=== PATIENT | male | born 1995 | race Caucasian/White ===

== ENCOUNTER 2019-04-29 13:33 | Emergency (ER) | payer OTHER ==
[~2019-04-29] VITALS: Ht 175.3 cm; Wt 53.5 kg
[~2019-04-29 13:33] MED LIST: AMOX1TAB12 PO; FIORICET 50-321 EACH PO; INTESTINEX1 CAP PO; MAXALT5 MG
[2019-04-29] MEDS ORDERED: DOLOGEN CAPLET1 EACH PO (17:33)
[2019-04-29] MEDS ORDERED: ZITHROMAX500 MG PO (17:33)
[2019-04-29] MEDS ORDERED: TUSNEL LIQUID178 ML PO (17:33)
== END 2019-04-29 17:36 | disposition home or self-care (01) ==
LOC: ER 13:33
DX: B34.9 Viral infection, unspecified (principal); J06.9 Acute upper respiratory infection, unspecified

== ENCOUNTER 2019-09-04 20:28 | Emergency (ER) | payer OTHER ==
[~2019-09-04] VITALS: Ht 175.3 cm; Wt 54.4 kg
[~2019-09-04 20:28] MED LIST changes: +DOLOGEN CAPLET1 EACH PO; +TUSNEL LIQUID178 ML PO; +ZITHROMAX500 MG PO
== END 2019-09-04 22:00 | disposition home or self-care (01) ==
LOC: ER 20:28
DX: S50.01XA Contusion of right elbow, initial encounter (principal); S40.011A Contusion of right shoulder, initial encounter; S93.492A Sprain of other ligament of left ankle, initial encounter; V19.88XA Pedal cyclist (driver) (passenger) injured in other specified transport accidents, initial encounter; Y93.89 Activity, other specified; Y92.414 Local residential or business street as the place of occurrence of the external cause; Y99.8 Other external cause status

== ENCOUNTER 2020-08-03 10:25 | Emergency (ER) | payer OTHER ==
[~2020-08-03] VITALS: Ht 175.3 cm; Wt 52.2 kg
[2020-08-03] MEDS ORDERED: ELETRIPTAN HBR40 MG (10:35)
[2020-08-03] MEDS ORDERED: ZITHROMAX500 MG PO (13:13)
== END 2020-08-03 14:02 | disposition home or self-care (01) ==
LOC: ER 10:25
DX: R53.81 Other malaise (principal); B34.8 Other viral infections of unspecified site

== ENCOUNTER 2020-09-23 16:00 | Emergency (ER) | payer OTHER ==
[~2020-09-23] VITALS: Ht 170.2 cm; Wt 54.4 kg
[~2020-09-23 16:00] MED LIST changes: +ELETRIPTAN HBR40 MG
== END 2020-09-23 19:52 | disposition home or self-care (01) ==
LOC: ER 16:00
DX: G43.909 Migraine, unspecified, not intractable, without status migrainosus (principal)

== ENCOUNTER 2020-10-31 11:11 | Emergency (ER) | payer OTHER ==
[~2020-10-31] VITALS: Ht 175.3 cm; Wt 54.4 kg
[2020-10-31] MEDS ORDERED: ELETRIPTAN HBR40 MG PO (11:37)
[2020-10-31] MEDS ORDERED: AMOX-CLAV 875-1 EACH PO (14:01)
== END 2020-10-31 14:10 | disposition home or self-care (01) ==
LOC: ER 11:11
DX: B34.9 Viral infection, unspecified (principal); Z11.52 Encounter for screening for COVID-19

== ENCOUNTER 2021-06-22 22:51 | Emergency (ER) | payer OTHER ==
[~2021-06-22] VITALS: Ht 175.3 cm; Wt 49.9 kg
[~2021-06-22 22:51] MED LIST changes: +AMOX-CLAV 875-1 EACH PO; +ELETRIPTAN HBR40 MG PO
[2021-06-23] MEDS ORDERED: DOXYCYCLINE HY100 M2 PO (02:20)
== END 2021-06-23 03:13 | disposition home or self-care (01) ==
LOC: ER 22:51
DX: A64 Unspecified sexually transmitted disease (principal); N39.0 Urinary tract infection, site not specified

== ENCOUNTER 2021-11-01 23:20 | Emergency (ER) | payer OTHER ==
[~2021-11-01] VITALS: Ht 175.3 cm; Wt 54.4 kg
[~2021-11-01 23:20] MED LIST changes: +DOXYCYCLINE HY100 M2 PO
[2021-11-01] MEDS ORDERED: EMGALITY P120 MG/1 M SUBCUTANEO (23:31)
== END 2021-11-02 04:13 | disposition home or self-care (01) ==
LOC: ER 23:20
DX: A74.9 Chlamydial infection, unspecified (principal); A64 Unspecified sexually transmitted disease; A54.9 Gonococcal infection, unspecified; R36.9 Urethral discharge, unspecified

== ENCOUNTER 2022-02-04 21:14 | Emergency (ER) | payer OTHER ==
[~2022-02-04] VITALS: Ht 175.3 cm; Wt 54.4 kg
[~2022-02-04 21:14] MED LIST changes: +EMGALITY P120 MG/1 M SUBCUTANEO
[2022-02-05] MEDS ORDERED: CEPHALEXIN500 MG PO (02:23)
[2022-02-05] MEDS ORDERED: URETRON D-S TAB1 TAB PO ×2 (02:23)
== END 2022-02-05 03:56 ==
LOC: ER 21:14
DX: R30.0 Dysuria (principal)

== ENCOUNTER 2022-04-08 10:50 | Emergency (ER) | payer OTHER ==
[~2022-04-08] VITALS: Ht 175.3 cm; Wt 56.7 kg
[~2022-04-08 10:50] MED LIST changes: +CEPHALEXIN500 MG PO; +EMGALITY P120 MG/1 M; +URETRON D-S TAB1 TAB PO
== END 2022-04-08 13:28 | disposition home or self-care (01) ==
LOC: ER 10:50
DX: A54.9 Gonococcal infection, unspecified (principal); R36.9 Urethral discharge, unspecified

== ENCOUNTER 2022-06-13 06:02 | Emergency (ER) | payer OTHER ==
[~2022-06-13] VITALS: Ht 175.3 cm; Wt 54.4 kg
== END 2022-06-13 11:00 | disposition home or self-care (01) ==
LOC: ER 06:02
DX: J03.80 Acute tonsillitis due to other specified organisms (principal); B96.89 Other specified bacterial agents as the cause of diseases classified elsewhere; E86.0 Dehydration; Z88.8 Allergy status to other drugs, medicaments and biological substances

== ENCOUNTER 2022-06-14 19:33 | Emergency (ER) | payer OTHER ==
[~2022-06-14] VITALS: Ht 175.3 cm; Wt 54.4 kg
== END 2022-06-15 00:17 | disposition home or self-care (01) ==
LOC: ER 19:33
DX: J02.9 Acute pharyngitis, unspecified (principal)